=== PATIENT | female | born 1965 | race Caucasian/White ===

== ENCOUNTER 2016-07-18 15:11 | Emergency (ER) | payer MEDICARE ==
--- NOTE | ~2016-07-18 | CR126 ---
[facility]. [facility] A Service of [facility] & [facility] RADIOLOGY TEXT RESULTS PATIENT: NIKKI HDEZ LOCATION: SED : 65 UNIT #: [id number] AGE: [address]: Radha Estevez SEX: F ORDER DR: [id number] [address] [address] [id number] E MR#: [id number] Acc #: [id number] NAME: NIKKI HDEZ : 1965 SEX: F STUDY DATE/TIME: 07/18/2016 15:34 UNIT: SED ROOM: STUDY DESCRIPTION: CR Foot Complete Min 3 View Lt Attending Physician: Radha Estevez P.A.-C. Ordering Physician: Radha Estevez P.A.-C. Primary Care Physician: Brianda Garg M.D. MEDICAL IMAGING REPORT This report is preliminary unless electronic signature is present. EXAM Left foot, 3 views. HISTORY Fourth toe pain after injury today. Hit toe on couch. FINDINGS Three views of the left foot demonstrate oblique fracture through the mid shaft of the proximal phalanx of the fourth toe with less than 10 degrees lateral angulation of the distal fracture fragment and less than 2 mm separation of the fracture fragments. No intraarticular fracture extension. No opaque soft tissue foreign body. The remainder of the foot is negative. Dictated by... Jordy Asif M.D. THIS IS AN ELECTRONICALLY VERIFIED REPORT Jordy Asif M.D. at 07/19/2016 10:31 PM VETO/[place] TD: 07/18/2016 23:52 JOB #: [id number] MEDICAL IMAGING REPORT Page 1 of 1
[~2016-07-18 15:11] MED LIST: BENTYL20 MG PO; CARAFATE PO; CHOLESTEROL; CIPRO PO; FAMOTIDINE PO; HYDROCODON-ACE1 EAC1 PO; HYDROCODON-ACE1 EAC5 PO; IBUPROFEN PO; LAMICTAL PO; LEVAQUIN750 MG PO; LEXAPRO; LIPITOR20 MG PO; LORTAB 7.5-5001 TAB PO; LORTAB 7.51 TAB 7.5/ PO; LORTAB 7.51 TAB PO; LUNESTA; METFORMIN HCL500 M1 PO; METFORMIN PO; NEXIUM PO; NICOTINE T1 PATCH .2 TOP; NORCO 10-325 TA1 TAB PO; OMEPRAZOLE20 M1 PO; PERCOCET5/325 PO; PREVACID; PREVACID PO; PRILOSEC20 M1 PO; PRILOSEC40 MG; PROMETHAZINE HC25 MG PO; PROTONIX PO; REGLAN10 MG PO; TYLOX 5/500 CAP1 CAP PO; ZITHROMAX PO; ZOFRANODT PO; [UNRECOGNIZED DRUG - OTHER] PO
== END 2016-07-18 16:19 | disposition home or self-care (01) ==
LOC: SED 15:11
DX: S92.512A Displaced fracture of proximal phalanx of left lesser toe(s), initial encounter for closed fracture (principal); F17.210 Nicotine dependence, cigarettes, uncomplicated; W22.8XXA Striking against or struck by other objects, initial encounter; Y92.009 Unspecified place in unspecified non-institutional (private) residence as the place of occurrence of the external cause; Z88.8 Allergy status to other drugs, medicaments and biological substances
CPT/HCPCS: 29515; 73630; 99283